=== PATIENT | female | born 1965 | race Caucasian/White ===

== ENCOUNTER 2024-09-03 11:47 | Day surgery (SDC) | payer OTHER, SELFPAY ==
--- NOTE | 2024-08-31 08:24 | HPS.HSE ---
Family Physician
-
Family Physician: NOT KNOW UNKNOWN - PT DOES
Chief Complaint
-
Complete AV heart block.
History of Present Illness
The patient is a 59 year female presenting today for complete AV heart block. The patient initially underwent a pacemaker insertion at 22 years of age secondary to this diagnosis. She then had a battery change in 2002 and then more
recently in August 2012 with a RV lead revision. Her last device check in June 2024 demonstrated less than 6 months of battery life. It is therefore recommended that she proceed with a dual chamber pacemaker generator change at this time. She
denies any current complaints today such as chest pain, shortness of breath, palpitations, nausea, vomiting, diarrhea, lightheadedness, dizziness, cough, sore throat, or fever.
Medical History
Past Medical History
Past Medical History: Reports Other
Additional Past Medical History:
1. Complete AV heart block, status post pacemaker insertion, 1986, with subsequent generator change in 2002 and generator change with RV lead revision 08/2012.
2. Hypercholesterolemia.
3. Paroxysmal atrial fibrillation per records.
4. Atrial tachycardia, resolved.
5. Mild tricuspid regurgitation.
6. Uterine fibroids.
7. Mildly elevated transaminase.
Past Surgical History: Reports Other
Additional Past Surgical History:
1. Pacemaker insertion.
2. Pacemaker generator change.
3. Pacemaker generator change with RV lead revision.
4. Breast augmentation.
5. Bilateral tubal ligation.
6. Endometrial ablation.
7. Right upper extremity benign mass excision.
8. [place] teeth extraction.
9. Colonoscopy.
Social History
Tobacco: Non-smoker
Alcohol: Other (Social alcohol use on weekends reported. )
Personal:
Living: Other (She lives with her in a 3 story home. )
Family History
Family History: Not pertinent
Allergies / Home Medications
Allergy/Medication List:
Home medications:
1. Atorvastatin 10 mg p.o. every evening.
2. Ibuprofen 400 mg p.o. every 6 hours as needed.
3. Multivitamin 1 tablet p.o. daily.
4. Metamucil 1 packet p.o. daily as needed.
Allergies: No known drug allergies.
Review of Systems
-
A 12 point ROS was completed and negative except as noted: Yes
Physical Exam
Vital Signs
Blood pressure 135/81. Heart rate 84. Respirations 18. Pulse ox 97% on room air.
Height 5 feet, 6 inches, weight 78.3 kg, BMI 27.9.
Physical Exam
General: Well Developed, Well Nourished and No Apparent Distress
HEENT: NormoCephalic, Moist mucous membranes, Atraumatic and PERRLA
Respiratory: Clear
Cardiac: Regular Rhythm and Other (Pacemaker site intact. )
GI: Soft, Non Tender and Non Distended
Musculoskeletal: No Edema and Normal Gait & Station
Skin: Warm and Dry
Neuro: AO x 3 and Nonfocal/grossly intact
Laboratory Results
-
DIAGNOSTIC STUDIES as of 08/31/2024: White blood cell count 5.0. Hemoglobin 13.8. Platelet count 226,000. Sodium 140. Potassium 4.1. BUN 9. Creatinine 0.5. Glucose 95. Calcium 9.9. Magnesium 1.8. AST 30. ALT 40. Albumin 4.6.
Echocardiogram 03/13/2023: Suboptimal parasternal views. Normal left ventricular size and systolic function. Mild septal hypertrophy. No regional wall motion abnormalities are seen. LV ejection fraction is 64% by Ndiaye's biplane method of discs.
Normal diastolic function.
Impression/Plan
-
IMPRESSION/PLAN:
1. Complete AV heart block: The patient is in need of a dual chamber pacemaker generator change with Dr. Bertram Douglass on 09/03/2024. The benefits and risks of the procedure have been explained to the patient. The patient understands these risks
and wishes to proceed.
[2024-08-31 08:32] VITALS: BMI 27.9
[2024-08-31 08:56] LABS: % Eosinophils 0.6 % (0-6); % Immature Granulocytes 0.4 % (0-0.5); % Lymphocytes 20.3 % (20.5-51.1); % Neutrophils 72.7 % (42.2-75.2); Absolute Basophils 0.1 10^3/uL (0-0.2); Absolute Monocytes 0.3 10^3/uL (0.1-0.6); Absolute Neutrophils 3.6 10^3/uL (1.4-6.5); Hematocrit 40.5 % (37.0-47.0); Hemoglobin 13.8 g/dL (12.0-16.0); Mean Corp Hgb Conc. 34.1 g/dL (33.0-37.0); Mean Corpuscular Hgb 30.3 pg (27.0-31.0); Mean Corpuscular Volume 88.8 fL (81.0-99.0); Mean Platelet Volume 8.8 fL (7.4-10.4); Nucleated Red Blood Cells % 0 %; Platelet Count 226 10^3/uL (130-400); Red Blood Cell Count 4.56 10^6/uL (4.20-5.40); Red Cell Dist. Width 12.5 % (11.5-14.5)
[2024-08-31 09:20] LABS: ALT (SGPT) 40 U/L (0-35); AST (SGOT) 30 U/L (14-36); Albumin 4.6 g/dl (3.5-5.0); Alkaline Phosphatase 92 U/L (38-126); Blood Urea Nitrogen 9 mg/dl (7-17); Calcium 9.9 mg/dl (8.4-10.2); Carbon Dioxide 27 mmol/L (22-30); Chloride 105 mmol/L (98-107); Estimated Creatinine Clearance 107 ml/min; Glucose 95 mg/dl (70-99); Magnesium 1.8 mg/dl (1.6-2.3); Potassium 4.1 mmol/L (3.5-5.1); Sodium 140 mmol/L (135-145); Total Bilirubin 0.8 mg/dl (0.2-1.3); Total Protein 6.6 g/dl (6.3-8.2); eGFR > 60.00
[2024-09-03] VITALS (8 sets, daily range): BP systolic 112–132; BP diastolic 68–86; BMI 27.3
--- NOTE | 2024-09-03 15:36 | ITS.CL.PACE ---
[facility] - Pacemaker Implant
Pacemaker Implant
Procedure Report:
PACEMAKER GENERATOR CHANGE
Date of Procedure: 09/03/24
Primary Role Player: Juan Sprague M.D.
PROCEDURES:
1. Removal of dual chamber PPM generator at [facility]
2. Implant of new dual chamber PPM generator
3. Relocation / Revision of PPM pocket
INDICATION FOR PROCEDURE:
1. PPM generator at [facility]
2. Pacing leads from 1986 are incompatible with modern day permanent pacemaker headers and therefore has required addition of an adapter. The bulk of the adapter adds complexity to the procedure and will require relocation of the permanent
pacemaker pocket.
HISTORY:
Congenital complete heart block. Please see H&P for more details.
'Time out' called and confirmed
Antibiotic: Ancef
Sedation/anesthesia: Via the anesthesia department
The patient was prepped and draped in sterile fashion. Lidocaine with epi was used for local anesthesia. An incision was made along the previous incision and the device and leads were carefully dissected from the pocket. Hemostasis was obtained
with electrocautery. The leads were from the device header and tested using an external analyzer. The pocket was liberally irrigated with antibiotic solution. Once testing (see below) showed adequate and stable function, the leads were
connected to the generator header and the leads and generator were placed within the pocket. The pocket was closed in the typical fashion.
EXPLANTED PPM GENERATOR:
[employer] Altrua [id number], [id number]
IMPLANTED
[employer] PPM GENERATOR: [id number] [address] MRI DR VALLEJO 1 (EL), implanted October 08, 2002
RV Pacing Lead Adaptor: [employer] serial #[id number], implanted March 28, 1987
EXISTING LEADS:
Existing RA Lead: Medtronic [id number], PJ [id number], implanted 1986
Existing RV Lead: Guidant [id number], [id number]
DEVICE TESTING:
Sensing: RA 3.4 mV, RV 6.7 mV
Capture: RA 0.5 V@0.5ms, RV 1.2 V@0.5ms
Ohms: RA 415, RV 612
FINAL PROGRAMMING
Ben Pacing: DDDR 60-140 ppm
COMPLICATIONS:
None
CONCLUSIONS:
1. Successful explant of dual chamber permanent pacemaker
This required relocation of the pocket given that the new device is 1 cm taller and profile
Additionally, the RV lead from 1986 is not compatible with modern day PPM generator headers and an adapter ([employer]) was added to allow compatibility, this added complexity as well as additional bulk to the pocket requiring relocation
The pocket was relocated 1 cm medially and 1 cm inferiorly.
2. Successful implant of dual chamber permanent pacemaker
RECOMMENDATIONS:
1. Routine post-op care
2. In-Office wound check in 7-14 days.
Copy to: Juan Sprague M.D.
== END 2024-09-03 18:10 | disposition home or self-care (01) ==
LOC: CATH 11:47
PROVIDERS: ATTENDING PHYSICIAN Internal Medicine Cardiovascular Disease; FAMILY PHYSICIAN Family Medicine; OTHER PHYSICIAN Internal Medicine Cardiovascular Disease
DX: Z45.010 Encounter for checking and testing of cardiac pacemaker pulse generator [battery] (principal); Q24.6 Congenital heart block; E78.00 Pure hypercholesterolemia, unspecified; I48.0 Paroxysmal atrial fibrillation; I07.1 Rheumatic tricuspid insufficiency; D25.9 Leiomyoma of uterus, unspecified; R74.01 Elevation of levels of liver transaminase levels
CPT/HCPCS: 33228; 36415; 80053; 83735; 85025; 93005; C1785